=== PATIENT | female | born 1945 | race Two or more races ===

== ENCOUNTER → 2018-12-13 | Outpatient (CLI) | payer OTHER | END | disposition home or self-care (01) | LOC: SONOGRAMA 13:20 | DX: E03.8 Other specified hypothyroidism (principal); E04.1 Nontoxic single thyroid nodule ==

== ENCOUNTER 2019-01-15 11:22 | Outpatient (CLI) | payer OTHER | END 2019-01-15 11:34 | disposition home or self-care (01) | LOC: LAB 11:22 | DX: Z12.11 Encounter for screening for malignant neoplasm of colon (principal); R19.4 Change in bowel habit ==

== ENCOUNTER 2019-01-22 14:29 | Outpatient (CLI) | payer OTHER | END 2019-01-22 14:31 | disposition home or self-care (01) | LOC: RAD 14:29 | DX: M25.511 Pain in right shoulder (principal); S43.401A Unspecified sprain of right shoulder joint, initial encounter ==

== ENCOUNTER 2019-06-15 15:53 | Outpatient (CLI) | payer OTHER | END 2019-06-15 18:00 | disposition home or self-care (01) | LOC: LAB 15:53 | DX: R05 Cough (principal); R50.9 Fever, unspecified ==

== ENCOUNTER 2020-07-01 11:44 | Outpatient (CLI) | payer OTHER | END 2020-07-01 12:42 | disposition home or self-care (01) | LOC: PPH VACUNA 11:44 | PROVIDERS: ATTEND Emergency Medicine Pediatric Emergency Medicine | DX: Z23 Encounter for immunization (principal) ==

== ENCOUNTER → 2020-07-22 07:00 | Outpatient (CLI) | payer OTHER | END | disposition home or self-care (01) | LOC: PPH VACUNA 07:00 | PROVIDERS: ATTEND Emergency Medicine Pediatric Emergency Medicine | DX: Z23 Encounter for immunization (principal) ==

== ENCOUNTER 2020-11-06 10:13 | Outpatient (CLI) | payer OTHER | END 2020-11-06 10:19 | disposition home or self-care (01) | LOC: RAD 10:13 | PROVIDERS: ATTEND Internal Medicine Endocrinology, Diabetes & Metabolism | DX: J18.8 Other pneumonia, unspecified organism (principal); R06.02 Shortness of breath ==

== ENCOUNTER 2020-12-30 07:34 | Day surgery (SDC) | payer OTHER | END 2020-12-30 10:45 | disposition home or self-care (01) | LOC: AMB-ENDOS 07:34 | PROVIDERS: ATTEND Surgery | DX: D12.2 Benign neoplasm of ascending colon (principal); D12.3 Benign neoplasm of transverse colon; Z20.822 Contact with and (suspected) exposure to COVID-19; K64.8 Other hemorrhoids; Z12.11 Encounter for screening for malignant neoplasm of colon ==

== ENCOUNTER → 2020-12-31 14:46 | Outpatient (CLI) | payer OTHER | END | disposition home or self-care (01) | LOC: MAMO-SONO 13:45 | PROVIDERS: ATTEND Plastic Surgery | DX: N60.01 Solitary cyst of right breast (principal); Z12.31 Encounter for screening mammogram for malignant neoplasm of breast; Z87.898 Personal history of other specified conditions; N64.59 Other signs and symptoms in breast ==

== ENCOUNTER 2021-03-16 08:00 | Outpatient (CLI) | payer OTHER | END 2021-03-16 08:30 | disposition home or self-care (01) | LOC: PPH VACUNA 08:00 | PROVIDERS: ATTEND Emergency Medicine Pediatric Emergency Medicine | DX: Z23 Encounter for immunization (principal) ==

== ENCOUNTER 2021-09-24 08:00 | Outpatient (CLI) | payer OTHER | END 2021-09-24 08:30 | disposition home or self-care (01) | LOC: PPH VACUNA 08:00 | PROVIDERS: ATTEND Emergency Medicine Pediatric Emergency Medicine | DX: Z23 Encounter for immunization (principal) ==

== ENCOUNTER 2022-01-17 18:21 | Emergency (ER) | payer OTHER ==
[~2022-01-17] VITALS: Ht 154.9 cm; Wt 55.3 kg
== END 2022-01-17 23:19 | disposition left against medical advice (07) ==
LOC: ER 18:21
DX: S01.551A Open bite of lip, initial encounter (principal); W54.0XXA Bitten by dog, initial encounter; Y93.9 Activity, unspecified; Y92.019 Unspecified place in single-family (private) house as the place of occurrence of the external cause

== ENCOUNTER 2022-03-26 08:40 | Outpatient (CLI) | payer OTHER | END 2022-03-26 09:15 | disposition home or self-care (01) | LOC: ASH CLINIC 08:40 → PPH VACUNA 08:40 | PROVIDERS: ATTEND General Practice | DX: U07.1 COVID-19 (principal) ==

== ENCOUNTER → 2022-06-30 | Outpatient (CLI) | payer OTHER | END | disposition home or self-care (01) | LOC: SONOGRAMA 11:19 | PROVIDERS: ATTEND Internal Medicine | DX: E04.2 Nontoxic multinodular goiter (principal) ==

== ENCOUNTER 2022-10-21 07:52 | Outpatient (CLI) | payer OTHER | END 2022-10-21 08:10 | disposition home or self-care (01) | LOC: LAB 07:52 | PROVIDERS: ATTEND Plastic Surgery | DX: I10 Essential (primary) hypertension (principal) ==

== ENCOUNTER 2022-12-06 13:49 | Outpatient (CLI) | payer OTHER | END 2022-12-06 13:57 | disposition home or self-care (01) | LOC: RAD 13:49 | DX: M77.30 Calcaneal spur, unspecified foot (principal) ==

== ENCOUNTER 2023-04-15 12:36 | Outpatient (CLI) | payer OTHER | END 2023-04-15 12:37 | disposition home or self-care (01) | LOC: NUCLEAR 12:36 | PROVIDERS: ATTEND Plastic Surgery | DX: M81.0 Age-related osteoporosis without current pathological fracture (principal) ==

== ENCOUNTER → 2023-05-27 08:59 | Outpatient (CLI) | payer OTHER ==
[2023-05-27 11:37] LABS: ALBUMIN 3.7 gm/dL (3.4-5.0); BILIRUBIN TOTAL 0.85 mg/dL (0.3-1.2); CALCIUM 8.6 mg/dL (8.5-10.1); CREATININE SERUM 0.9 mg/dL (0.55-1.02); GFR 60.71; GLOBULINA 2.8 G/DL (2.4-3.5); MAGNESIUM 2.1 mg/dL (1.8-2.4); POTASSIUM 4.04 mEq/L (3.5-5.1); TOTAL PROTEIN 6.5 gm/dL (6.4-8.2); TSH 0.473 uIU/mL (0.358-3.74)
[2023-05-28 18:06] LABS: CALCIUM IONIZED 4.7 mg/dL (4.5-5.6)
== END | disposition home or self-care (01) ==
LOC: LAB 08:59
PROVIDERS: ATTEND Orthopaedic Surgery
DX: M85.9 Disorder of bone density and structure, unspecified (principal); E83.42 Hypomagnesemia; E56.1 Deficiency of vitamin K; E03.9 Hypothyroidism, unspecified; E11.9 Type 2 diabetes mellitus without complications

== ENCOUNTER 2024-07-30 15:24 | Outpatient (CLI) | payer OTHER | END 2024-07-30 15:27 | disposition home or self-care (01) | LOC: TOM 15:24 | PROVIDERS: ATTEND Plastic Surgery | DX: R42 Dizziness and giddiness (principal); R51.9 Headache, unspecified ==